=== PATIENT | female | born 1980 | race Hispanic/Latino ===

== ENCOUNTER 2017-09-29 18:14 | Observation (INO) | payer OTHER ==
[~2017-09-29] VITALS: Ht 162.6 cm; Wt 56.7 kg
[2017-09-29 18:54] LABS: APPEARANCE,URINE Clear (CLEAR); BILIRUBIN,URINE Negative (NEGATIVE); COLOR,URINE Dark Yellow (YELLOW); GLUCOSE, URINE (UA) Negative (NEGATIVE); KETONES,URINE Trace mg/dL (NEGATIVE); LEUKOCYTE ESTERASE ,URINE Trace (NEGATIVE); NITRATE,URINE Negative (NEGATIVE); OCCULT BLOOD,URINE Small (NEGATIVE); PROTEIN,URINE Trace (NEGATIVE)
[2017-09-29 18:55] LABS: HCG,QUAL RESULT NEGATIVE (NEGATIVE)
[2017-09-29] MEDS ORDERED: MORPHINE SULFATE 4 MG/1ML SYG ONE ×2 (19:00→21:15)
[2017-09-29] MEDS ORDERED: ONDANSETRON HCL 4 MG/2 ML VIAL ONE (19:00)
[2017-09-29 19:07] LABS: BACTERIA,URINE Rare /HPF (None Seen); MUCUS,URINE Moderate LPF (None Seen); RBC,URINE 0-1 /HPF (0-1); WBC,URINE 0-1 /HPF (0-1)
[2017-09-29 21:25] LABS: BASOPHILS % (AUTO) 0.2 % (0.0-5.0); HEMATOCRIT 37.2 % (36-48); LYMPHOCYTES % (AUTO) 4.4 % (21.0-51.0); MEAN CORPUSCULAR HEMOGLOBIN 29.9 pg (27.0-33.0); MONOCYTES % (AUTO) 2.7 % (3.0-13.0); NEUTROPHILS % (AUTO) 92.7 % (40.0-77.0); NUCLEATED RED BLOOD CELLS 0.1 % (0.0-0.19); PLATELET COUNT (AUTO) 227 K/uL (130-400); RED BLOOD CELL COUNT(AUTO) 4.23 MIL/uL (4.00-5.50); WHITE BLOOD COUNT (AUTO) 14.7 K/uL (4.8-10.8)
[2017-09-29 21:33] LABS: CREATININE 0.7 mg/dL (0.5-1.5); POTASSIUM 3.8 mmol/L (3.5-5.1)
[2017-09-29 21:37] LABS: BILIRUBIN,TOTAL 0.2 mg/dL (0.2-1.0); TOTAL PROTEIN, SERUM 7.8 g/dL (6.0-8.3)
[2017-09-29] MEDS ORDERED: LACTATED RINGERS 1000ML 1,000 ML IV SCH (21:45)
[2017-09-29] MEDS ORDERED: MORPHINE SULFATE 4 MG/1ML SYG IV PRN (21:45)
[2017-09-29] MEDS ORDERED: ONDANSETRON HCL MDV 20ML 2 MG/ML VIAL IV PRN (21:45)
[2017-09-29] MEDS ORDERED: MORPHINE SULFATE 2 MG/ML 1ML SYG IV PRN (21:45)
[2017-09-29 22:57] VITALS: BP 103/65
[2017-09-29] MEDS ORDERED: MECO5000 PO (23:17)
[2017-09-30 03:40] VITALS: BP 92/57
[2017-09-30 05:12] LABS: HEMATOCRIT 33.6 % (36-48); MEAN CORPUSCULAR HEMOGLOBIN 30.8 pg (27.0-33.0); MEAN CORPUSCULAR HGB CONC 34.7 g/dL (32.0-36.0); MEAN CORPUSCULAR VOLUME 88.6 fL (79-99); PLATELET COUNT (AUTO) 223 K/uL (130-400); RED BLOOD CELL COUNT(AUTO) 3.79 MIL/uL (4.00-5.50); RED CELL DISTRIBUTION WIDTH 13.7 % (11.0-15.5); WHITE BLOOD COUNT (AUTO) 8.6 K/uL (4.8-10.8)
[2017-09-30 05:17] LABS: CREATININE 0.7 mg/dL (0.5-1.5); POTASSIUM 4.1 mmol/L (3.5-5.1)
[2017-09-30 07:42] VITALS: BP 104/60
[2017-09-30] MEDS: ENOXAPARIN SODIUM 30 MG/0.3 ML SQ SCH ×2 (08:35→21:32)
[2017-09-30] MEDS ORDERED: ACETAMINOPHEN 325 MG TAB PO PRN (09:45)
[2017-09-30 11:18] VITALS: BP 102/59
[2017-09-30 16:18] VITALS: BP 101/64
[2017-09-30] MEDS: IBUPROFEN 600 MG TABLET PO PRN (18:22)
[2017-09-30 20:00] VITALS: BP 103/66
[2017-10-01] VITALS: BP 102/69
[2017-10-01 04:00] VITALS: BP 101/67
[2017-10-01 07:21] VITALS: BP 90/53
[2017-10-01] MEDS: IBUPROFEN 600 MG TABLET PO PRN (12:57)
[2017-10-01] MEDS: ENOXAPARIN SODIUM 30 MG/0.3 ML SQ SCH (12:58)
== END 2017-10-01 14:05 | disposition home or self-care (01) ==
LOC: EDH 18:14 → INTOOBSV 18:15 → EDHIP 18:15 → 4BH 22:57
PROVIDERS: ADMIT Surgery; ATTEND Surgery
DX: S32.019A Unspecified fracture of first lumbar vertebra, initial encounter for closed fracture (principal); M54.9 Dorsalgia, unspecified; I25.10 Atherosclerotic heart disease of native coronary artery without angina pectoris; E11.9 Type 2 diabetes mellitus without complications; F02.80 Dementia in other diseases classified elsewhere, unspecified severity, without behavioral disturbance, psychotic disturbance, mood disturbance, and anxiety; G30.9 Alzheimer's disease, unspecified; I10 Essential (primary) hypertension; J44.9 Chronic obstructive pulmonary disease, unspecified; Z86.73 Personal history of transient ischemic attack (TIA), and cerebral infarction without residual deficits; V89.2XXA Person injured in unspecified motor-vehicle accident, traffic, initial encounter; Y92.411 Interstate highway as the place of occurrence of the external cause; Y93.89 Activity, other specified; Y99.8 Other external cause status
CPT/HCPCS: 36415 ×2; 70450; 71045; 72131; 80048; 80053; 81001; 81025; 82550; 83690; 85025; 85027; 96360; 96361; 96372 ×2; 97116; 97161; 99291; G0378 ×44; G8978; G8979; G8981; G8982; J1650 ×3; J2270 ×2; J2405; J7120